=== PATIENT | female | born 1975 | race Caucasian/White ===

== ENCOUNTER 2019-04-16 11:12 | Emergency (ER) | payer SELFPAY ==
[~2019-04-16 11:12] MED LIST: BACDS PO; CIT20 PO; CLI150 PO; ESTR0.6246; GAB300 PO; HYDR1TAB PO; HYDR2TAB42 PO; KET10 PO; NAPR-1043 PO; NAPR220C13 PO; ONDA4TAB PO; TRAZ50 PO
[2019-04-16 11:17] VITALS: BP 117/81
[2019-04-16] MEDS ORDERED: AMOXICILLIN 500 MG CAP PO ONE (11:30)
[2019-04-16] MEDS ORDERED: OXYC-865 PO (11:33)
[2019-04-16] MEDS ORDERED: AMOX-362 PO (11:33)
--- NOTE | 2019-04-16 11:34 | ER Report ---
History and Physical Time Seen By MD: 11:29 Hx. of Stated Complaint: LEFT UPPER DENTAL PAIN/SWELLING STARTED LAST NIGHT. PT REPORTS ETOH CONSUMPTION FOR PAIN CONTROL. HPI/ROS CHIEF COMPLAINT: Dental pain HISTORY OF PRESENT ILLNESS: Patient is a 43-year-old female with history of poor dentition, complaining of left upper molar pain. I also is some drainage of blood and painful chewing. He states that symptoms began yesterday. She tried some [id number] pain medication which was unaffected and she is self- medicating with alcohol for pain. She does not have a dentist but is planning on following up with the [facility]. She denies any fevers or chills. Allergies: Coded Allergies: morphine (Verified Allergy, Mild, 04/16/19) Home Meds Active Scripts Oxycodone Hcl/Acetaminophen (PERCOCET 5-325 MG TABLET) 1 Each Tablet, 1 EACH PO Q4H for PAIN, #20 TAB 0 Refills Prov:MACEY PAYNE MD 04/16/19 Amoxicillin (AMOXICILLIN) 500 Mg Capsule, 1 CAP PO Q8H, #21 CAPSULE 0 Refills TAKE ONE CAPSULE BY MOUTH EVERY 8 HOURS Prov:MACEY PAYNE MD 04/16/19 Discontinued Reported Medications Clindamycin Hcl (Cleocin) 150 Mg Cap, 300 MG PO TID 10/06/12 Hydrocodone Bit/Acetaminophen (Hydrocodone-Apap 5-325 Tab) 1 Each Tablet, 1 EACH PO Q4H NO ALCOHOL/DRIVING 10/06/12 Naproxen Sodium (Naproxen Sodium) 220 Mg Capsule, 220 MG PO 10/06/12 Past Medical/Surgical History Noncontributory towards discharge chief complaint Hx Smoking: Yes (1/2 PACK) Hx Substance Use Disorder: No Hx Alcohol Use: No Constitutional Vital Sign - Last 24 Hours 04/16/19 11:17 Temp 98.2 Pulse 105 Resp 14 B/P (MAP) 117/81 Pulse Ox 93 O2 Delivery Room Air Physical Exam General Appearance: Alert, no distress. Nose: No bleeding. Mouth: Mucous membranes are moist. Throat: No erythema or exudates there is no tonsillar hypertrophy and uvula is midline. Teeth: Poor dentition with some missing teeth. Examination of the left maxillary gingiva shows severe erythema and inflammation. There is no obvious areas of fluctuance or purulent discharge. Musculoskeletal: Neck is supple non tender, no adenopathy. Medical Decision Making ED Course/Re-evaluation ED Course 04/16/2019 11:31:32 am plan this time. Start patient on oral antibiotics and pain medicine and have her schedule follow-up with [facility]. Decision to Disposition Date: April 16, 2019 Decision to Disposition Time: 11:31 Depart Departure Latest Vital Signs Vital Signs Date Time Temp Pulse Resp B/P (MAP) Pulse Ox O2 Delivery O2 Flow Rate FiO2 04/16/19 11:17 98.2 105 14 117/81 93 Room Air Impression: Primary Impression: Pain, dental Additional Impression: Pain due to dental caries Condition: Improved Disposition: HOME OR SELF-CARE New Scripts Oxycodone Hcl/Acetaminophen (PERCOCET 5-325 MG TABLET) 1 Each Tablet 1 EACH PO Q4H for PAIN, #20 TAB 0 Refills Prov: MACEY PAYNE MD 04/16/19 Amoxicillin (AMOXICILLIN) 500 Mg Capsule 1 CAP PO Q8H, #21 CAPSULE 0 Refills TAKE ONE CAPSULE BY MOUTH EVERY 8 HOURS Prov: MACEY PAYNE MD 04/16/19 Patient Instructions: Dental Caries (ED) Additional Instructions: Call to schedule a follow-up appointment at the [facility] for a dental evaluation. Problem Qualifiers MACEY PAYNE MD April 16, 2019 11:34
== END 2019-04-16 11:44 | disposition home or self-care (01) ==
LOC: ER 11:16
DX: K08.89 Other specified disorders of teeth and supporting structures (principal); K02.9 Dental caries, unspecified
CPT/HCPCS: 99283